=== PATIENT | female | born 1960 | race Caucasian/White ===

== ENCOUNTER → 2017-11-23 | Outpatient (CLI) | payer OTHER ==
[~2017-11-23] MED LIST: CLARITIN,ALAVAR10 MG PO; CYTOTEC200 MCG PO; HYDROCHLOROTHIA25 MG PO; PRINIVIL10 MG PO; TYLENOL REGULA325 MG PO
== END | disposition home or self-care (01) ==
LOC: CDC 09:42
DX: Z01.810 Encounter for preprocedural cardiovascular examination (principal)
CPT/HCPCS: 93000

== ENCOUNTER 2018-01-17 13:55 | Emergency (ER) | payer OTHER ==
[~2018-01-17] VITALS: Ht 154.9 cm; Wt 81.8 kg
[2018-01-17 15:14] LABS: HEMATOCRIT 41.5 % (36.0-46.0); HEMOGLOBIN 14.5 G/DL (11.9-15.5); MCH 34.4 PG (29.0-34.0); MCHC 34.9 G/DL (30.0-36.0); MCV 98.6 FL (83-99); PLATELET COUNT 278 K/uL (156-360); RBC DIS.WIDTH-CV 12.5 % (11.8-14.6); RBC DIS.WIDTH-SD 45.8 % (39-53); RED BLOOD COUNT 4.21 M/uL (3.80-5.20); WHITE BLOOD COUNT 9.8 K/uL (4.1-10.2)
[2018-01-17 15:26] LABS: ALBUMIN 4.3 g/dL (3.2-4.8); CHLORIDE 100 mEq/L (99-109)
[2018-01-17 15:27] LABS: POTASSIUM 3.7 mEq/L (3.7-5.4); SODIUM 142 mEq/L (136-147)
[2018-01-17 15:29] LABS: GLUCOSE 115 mg/dL (70-99); TOTAL PROTEIN 7.9 g/dL (6.4-8.3)
[2018-01-17 15:31] LABS: TOTAL BILIRUBIN 1.1 mg/dL (0.0-1.0)
[2018-01-17 15:32] LABS: ALKALINE PHOSPHATASE 74 IU/L (3-129); CREATININE 1.3 mg/dL (0.6-1.3); GFR ESTIMATE (CALCULATED) 45 mL/min/
[2018-01-17 15:34] LABS: AST (GOT) 20 IU/L (2-34); UREA NITROGEN (BUN) 23 mg/dL (9-23)
[2018-01-17 15:35] LABS: ALT (GPT) 17 IU/L (3-49)
[2018-01-17 16:13] LABS: TROP-I INTERPRETATION NEGATIVE; TROPONIN-I 0.04 ng/mL (0.0-0.30)
[2018-01-17] MEDS ORDERED: OMEPRAZOLE40 M1 PO (16:50)
[2018-01-17 17:06] VITALS: BP 132/61
== END 2018-01-17 17:18 | disposition home or self-care (01) ==
LOC: EME 13:55
PROVIDERS: Physician Assistant
DX: K21.9 Gastro-esophageal reflux disease without esophagitis (principal); R07.9 Chest pain, unspecified; Z91.040 Latex allergy status
CPT/HCPCS: 71046; 80053; 81003; 84484; 85027; 93005; 99281; 99285

== ENCOUNTER 2018-03-05 09:11 | Emergency (ER) | payer OTHER ==
[~2018-03-05] VITALS: Ht 154.9 cm; Wt 81.5 kg
[~2018-03-05 09:11] MED LIST changes: +OMEPRAZOLE40 M1 PO
[2018-03-05 10:04] LABS: BASOPHIL (%) 0.7 % (0-1); BASOPHIL COUNT 0.1 K/uL (0-0.1); EOSINOPHIL (%) 1.8 % (0-5); EOSINOPHIL COUNT 0.2 K/uL (0-0.3); HEMATOCRIT 42.2 % (36.0-46.0); HEMOGLOBIN 14.7 G/DL (11.9-15.5); IMMATURE GRANULOCYTE (%) 0.3 % (0.0-0.7); LYMPHOCYTE COUNT 1.4 K/uL (1.0-2.8); MCHC 34.8 G/DL (30.0-36.0); MCV 97.7 FL (83-99); MONOCYTE COUNT 1.1 K/uL (0-0.8); NEUTROPHIL (%) 69.2 % (45-76); NEUTROPHIL COUNT 6.1 K/uL (1.8-6.4); PLATELET COUNT 259 K/uL (156-360); RBC DIS.WIDTH-CV 12.1 % (11.8-14.6); RBC DIS.WIDTH-SD 43.9 % (39-53); RED BLOOD COUNT 4.32 M/uL (3.80-5.20); WHITE BLOOD COUNT 8.8 K/uL (4.1-10.2)
[2018-03-05 10:15] LABS: CHLORIDE 101 mEq/L (99-109); POTASSIUM 3.1 mEq/L (3.7-5.4); SODIUM 142 mEq/L (136-147)
[2018-03-05 10:17] LABS: GLUCOSE 102 mg/dL (70-99)
[2018-03-05 10:21] LABS: CREATININE 1.1 mg/dL (0.6-1.3); GFR ESTIMATE (CALCULATED) 54 mL/min/
[2018-03-05 10:22] LABS: UREA NITROGEN (BUN) 20 mg/dL (9-23)
[2018-03-05 13:30] VITALS: BP 163/83
== END 2018-03-05 13:55 | disposition home or self-care (01) ==
LOC: EME 09:11
PROVIDERS: Emergency Medicine
DX: I10 Essential (primary) hypertension (principal)
CPT/HCPCS: 80048; 85025; 99281; 99284

== ENCOUNTER 2018-04-18 17:22 | Inpatient (IN) | payer OTHER ==
[~2018-04-18] VITALS: Ht 154.9 cm; Wt 92.0 kg
[~2018-04-18 17:22] MED LIST changes: -PRINIVIL10 MG PO; +TYLENOL EXTRA500 MG PO; -TYLENOL REGULA325 MG PO; +ZESTRIL40 MG PO
[2018-04-18] MEDS ORDERED: OMEPRAZOLE40 M1 PO (18:17)
[2018-04-18] MEDS ORDERED: AUGMENTIN875 MG PO (18:17)
[2018-04-18] MEDS ORDERED: LOPRESSOR25 MG PO (18:17)
[2018-04-18 18:29] LABS: BASOPHIL (%) 0.3 % (0-1); BASOPHIL COUNT 0.1 K/uL (0-0.1); EOSINOPHIL (%) 0.2 % (0-5); HEMATOCRIT 37.2 % (36.0-46.0); HEMOGLOBIN 12.8 G/DL (11.9-15.5); IMMATURE GRANULOCYTE (%) 0.7 % (0.0-0.7); LYMPHOCYTE (%) 6.2 % (15-42); LYMPHOCYTE COUNT 1.2 K/uL (1.0-2.8); MCHC 34.4 G/DL (30.0-36.0); MCV 98.9 FL (83-99); MONOCYTE COUNT 1.4 K/uL (0-0.8); NEUTROPHIL (%) 85.6 % (45-76); NEUTROPHIL COUNT 17.1 K/uL (1.8-6.4); PLATELET COUNT 309 K/uL (156-360); RBC DIS.WIDTH-CV 12.6 % (11.8-14.6); RBC DIS.WIDTH-SD 45.8 % (39-53); RED BLOOD COUNT 3.76 M/uL (3.80-5.20)
[2018-04-18 18:38] LABS: ALBUMIN 4.1 g/dL (3.2-4.8)
[2018-04-18 18:39] LABS: CHLORIDE 110 mEq/L (99-109); POTASSIUM 4.9 mEq/L (3.7-5.4); SODIUM 138 mEq/L (136-147)
[2018-04-18 18:41] LABS: GLUCOSE 111 mg/dL (70-99); TOTAL PROTEIN 8.4 g/dL (6.4-8.3)
[2018-04-18 18:43] LABS: TOTAL BILIRUBIN 0.5 mg/dL (0.0-1.0)
[2018-04-18 18:44] LABS: ALKALINE PHOSPHATASE 66 IU/L (3-129)
[2018-04-18 18:45] LABS: CREATININE 7.8 mg/dL (0.6-1.3); GFR ESTIMATE (CALCULATED) 6 mL/min/
[2018-04-18 18:46] LABS: AST (GOT) 11 IU/L (2-34); DIRECT BILIRUBIN 0.2 mg/dL (0.0-0.3)
[2018-04-18 18:47] LABS: ALT (GPT) 10 IU/L (3-49)
[2018-04-18 18:55] LABS: UREA NITROGEN (BUN) 143 mg/dL (9-23)
[2018-04-18 19:12] LABS: COMMENTS - BLOOD GASES C+; SITE RR; TOTAL RESP RATE 18 resp/min
[2018-04-18 19:14] LABS: CARBOXY HGB 1.3 % (0-5); METHEMOGLOBIN 1.3 % (0-1.5); PCO2 23 mm Hg (35-45); PO2 107 mm Hg (80-100); pH 7.09 (7.35-7.45)
[2018-04-18 19:15] LABS: BASE EXCESS -21.2 mEq/L (-3 to +3)
[2018-04-18 19:33] LABS: APPEARANCE CLOUDY ((CLEAR)); BILIRUBIN NEGATIVE; BLOOD LARGE; COLOR YELLOW ((YELLOW)); GLUCOSE (STRIP) NEGATIVE; KETONES NEGATIVE; LEUKOCYTES LARGE; NITRITE NEGATIVE; PROTEIN (STRIP) 30; SPECIFIC GRAVITY 1.011 (1.000-1.030); UROBILINOGEN 0.2 MG/DL (0.2-1.0)
[2018-04-18 19:54] LABS: BACTERIA RARE /HPF; EPITHELIAL CELLS RARE /HPF; WHITE BLOOD CELLS TNTC /HPF (0-5)
[2018-04-18 20:22] LABS: RED BLOOD CELLS 15-20 /HPF (0-5)
[2018-04-18 20:23] LABS: MUCUS NONE SEEN /LPF
[2018-04-18 21:40] LABS: MAGNESIUM 1.3 mg/dL (1.3-2.7)
[2018-04-18 21:45] LABS: PHOSPHORUS 10.5 mg/dL (2.5-4.9)
[2018-04-18 22:48] LABS: PTT 38.3 SEC (25-37)
[2018-04-18 23:15] VITALS: BP 76/60
[2018-04-18 23:19] LABS: INTER. NORMALIZED RATIO 1.2
[2018-04-18 23:30] VITALS: BP 76/60
[2018-04-19] VITALS (18 sets, daily range): BP systolic 75–129; BP diastolic 41–90
[2018-04-19 05:19] LABS: BASE EXCESS -18.1 mEq/L (-3 to +3); BICARBONATE 8.8 mEq/L (22-26); CARBOXY HGB 1.4 % (0-5); COMMENTS - BLOOD GASES C+A+; DEVICE ROOM AIR; METHEMOGLOBIN 1.1 % (0-1.5); PCO2 24 mm Hg (35-45); PO2 118 mm Hg (80-100); SITE LR
[2018-04-19 05:20] LABS: pH 7.17 (7.35-7.45)
[2018-04-19 06:10] LABS: HEMATOCRIT 30.6 % (36.0-46.0); MCH 32.7 PG (29.0-34.0); RBC DIS.WIDTH-CV 12.8 % (11.8-14.6); WHITE BLOOD COUNT 13.6 K/uL (4.1-10.2)
[2018-04-19 06:18] LABS: HEMOGLOBIN 9.8 G/DL (11.9-15.5); PLATELET COUNT 211 K/uL (156-360)
[2018-04-19 06:23] LABS: CHLORIDE 113 MEQ/L (99-109); GLUCOSE 137 mg/dL (70-99); PHOSPHORUS 8.9 mg/dL (2.5-4.9); SODIUM 139 MEQ/L (136-147)
[2018-04-19 06:43] LABS: CREATININE 6.4 MG/DL (0.6-1.3); GFR ESTIMATE (CALCULATED) 7 mL/min/; UREA NITROGEN (BUN) 119 mg/dL (9-23)
[2018-04-19 16:36] LABS: CHLORIDE 110 MEQ/L (99-109); CREATININE 5.6 MG/DL (0.6-1.3); GFR ESTIMATE (CALCULATED) 8 mL/min/; GLUCOSE 156 mg/dL (70-99); MAGNESIUM 1.1 mg/dl (1.3-2.7); SODIUM 138 MEQ/L (136-147); UREA NITROGEN (BUN) 111 mg/dL (9-23)
[2018-04-20] VITALS (11 sets, daily range): BP systolic 115–159; BP diastolic 71–88
[2018-04-20 05:11] LABS: BASOPHIL (%) 0.3 % (0-1); EOSINOPHIL (%) 0.1 % (0-5); HEMATOCRIT 28.6 % (36.0-46.0); HEMOGLOBIN 10.2 G/DL (11.9-15.5); IMMATURE GRANULOCYTE (%) 0.4 % (0.0-0.7); LYMPHOCYTE (%) 8.4 % (15-42); LYMPHOCYTE COUNT 1.3 K/uL (1.0-2.8); MCHC 35.7 G/DL (30.0-36.0); MONOCYTE (%) 12.8 % (3-12); NEUTROPHIL COUNT 12.2 K/uL (1.8-6.4); PLATELET COUNT 204 K/uL (156-360); RBC DIS.WIDTH-CV 12.2 % (11.8-14.6); WHITE BLOOD COUNT 15.6 K/uL (4.1-10.2)
[2018-04-20 05:13] LABS: MCV 95.3 FL (83-99)
[2018-04-20 05:16] LABS: ALBUMIN 2.9 g/dL (3.2-4.8); CHLORIDE 108 mEq/L (99-109); POTASSIUM 3.2 mEq/L (3.7-5.4); SODIUM 142 mEq/L (136-147)
[2018-04-20 05:19] LABS: GLUCOSE 118 mg/dL (70-99)
[2018-04-20 05:21] LABS: TOTAL BILIRUBIN 0.6 mg/dL (0.0-1.0)
[2018-04-20 05:22] LABS: ALKALINE PHOSPHATASE 45 IU/L (3-129); PHOSPHORUS 7.3 mg/dL (2.5-4.9)
[2018-04-20 05:23] LABS: CREATININE 5.5 mg/dL (0.6-1.3); GFR ESTIMATE (CALCULATED) 8 mL/min/
[2018-04-20 05:44] LABS: ALT (GPT) 22 IU/L (3-49); AST (GOT) 56 IU/L (2-34); TOTAL PROTEIN 5.3 g/dL (6.4-8.3); UREA NITROGEN (BUN) 111 mg/dL (9-23)
[2018-04-20 16:15] LABS: CHLORIDE 102 MEQ/L (99-109); CREATININE 4.9 MG/DL (0.6-1.3); GFR ESTIMATE (CALCULATED) 10 mL/min/; GLUCOSE 123 mg/dL (70-99); POTASSIUM 3.2 MEQ/L (3.7-5.4); SODIUM 141 MEQ/L (136-147); UREA NITROGEN (BUN) 100 mg/dL (9-23)
[2018-04-21 03:23] VITALS: BP 128/75
[2018-04-21 06:00] LABS: BASOPHIL (%) 0.2 % (0-1); EOSINOPHIL (%) 0.1 % (0-5); HEMATOCRIT 27.6 % (36.0-46.0); HEMOGLOBIN 9.7 G/DL (11.9-15.5); IMMATURE GRANULOCYTE (%) 0.7 % (0.0-0.7); LYMPHOCYTE (%) 6.7 % (15-42); LYMPHOCYTE COUNT 1.1 K/uL (1.0-2.8); MCH 32.9 PG (29.0-34.0); MCHC 35.1 G/DL (30.0-36.0); MCV 93.6 FL (83-99); MONOCYTE (%) 12.5 % (3-12); MONOCYTE COUNT 2.1 K/uL (0-0.8); NEUTROPHIL (%) 79.8 % (45-76); NEUTROPHIL COUNT 13.6 K/uL (1.8-6.4); PLATELET COUNT 202 K/uL (156-360); RBC DIS.WIDTH-CV 11.9 % (11.8-14.6); RBC DIS.WIDTH-SD 40.7 % (39-53); RED BLOOD COUNT 2.95 M/uL (3.80-5.20)
[2018-04-21 06:24] LABS: CHLORIDE 98 MEQ/L (99-109); GLUCOSE 132 mg/dL (70-99); POTASSIUM 3.2 MEQ/L (3.7-5.4); SODIUM 143 MEQ/L (136-147); UREA NITROGEN (BUN) 80 mg/dL (9-23)
[2018-04-21 06:46] LABS: GFR ESTIMATE (CALCULATED) 12 mL/min/
[2018-04-21 06:47] LABS: MAGNESIUM 0.8 mg/dl (1.3-2.7); PHOSPHORUS 3.9 mg/dL (2.5-4.9)
[2018-04-21 07:15] VITALS: BP 117/58
[2018-04-21 11:33] VITALS: BP 125/63
[2018-04-21 15:43] VITALS: BP 113/66
[2018-04-21 21:01] VITALS: BP 118/59
[2018-04-21 22:55] VITALS: BP 112/70
[2018-04-22 03:15] VITALS: BP 117/67
[2018-04-22 05:21] LABS: HEMATOCRIT 27.8 % (36.0-46.0); HEMOGLOBIN 9.3 G/DL (11.9-15.5); MCH 33.5 PG (29.0-34.0); MCHC 33.5 G/DL (30.0-36.0); PLATELET COUNT 186 K/uL (156-360); RBC DIS.WIDTH-CV 12.7 % (11.8-14.6); RBC DIS.WIDTH-SD 46.7 % (39-53); RED BLOOD COUNT 2.78 M/uL (3.80-5.20); WHITE BLOOD COUNT 19.3 K/uL (4.1-10.2)
[2018-04-22 06:08] LABS: CHLORIDE 100 MEQ/L (99-109); GLUCOSE 105 mg/dL (70-99); POTASSIUM 3.6 MEQ/L (3.7-5.4); SODIUM 144 MEQ/L (136-147); UREA NITROGEN (BUN) 58 mg/dL (9-23)
[2018-04-22 06:45] LABS: CREATININE 3.1 MG/DL (0.6-1.3); GFR ESTIMATE (CALCULATED) 16 mL/min/; MAGNESIUM 1.9 mg/dl (1.3-2.7)
[2018-04-22 06:55] VITALS: BP 108/58
[2018-04-22 11:36] VITALS: BP 126/91
[2018-04-22 16:19] VITALS: BP 136/68
[2018-04-22 19:17] VITALS: BP 135/69
[2018-04-22 22:09] VITALS: BP 124/70
[2018-04-23 04:06] VITALS: BP 148/65
[2018-04-23 05:53] LABS: HEMATOCRIT 28.8 % (36.0-46.0); HEMOGLOBIN 9.3 G/DL (11.9-15.5); MCH 32.5 PG (29.0-34.0); MCHC 32.3 G/DL (30.0-36.0); MCV 100.7 FL (83-99); PLATELET COUNT 206 K/uL (156-360); RBC DIS.WIDTH-CV 12.5 % (11.8-14.6); RBC DIS.WIDTH-SD 46.4 % (39-53); RED BLOOD COUNT 2.86 M/uL (3.80-5.20); WHITE BLOOD COUNT 20.2 K/uL (4.1-10.2)
[2018-04-23 06:07] LABS: CHLORIDE 101 MEQ/L (99-109); GLUCOSE 102 mg/dL (70-99); POTASSIUM 3.9 MEQ/L (3.7-5.4); SODIUM 140 MEQ/L (136-147); UREA NITROGEN (BUN) 42 mg/dL (9-23)
[2018-04-23 06:08] LABS: CREATININE 2.2 MG/DL (0.6-1.3); GFR ESTIMATE (CALCULATED) 24 mL/min/
[2018-04-23 07:24] VITALS: BP 145/68
[2018-04-23 11:28] VITALS: BP 128/66
[2018-04-23 13:28] LABS: INTACT PARATHYROID HORMONE 122 pg/mL (10-69)
[2018-04-23 15:30] VITALS: BP 159/74
[2018-04-23 21:00] VITALS: BP 114/54
[2018-04-24] VITALS: BP 118/58
[2018-04-24 05:19] VITALS: BP 118/60
[2018-04-24 05:38] LABS: HEMATOCRIT 26.6 % (36.0-46.0); HEMOGLOBIN 8.6 G/DL (11.9-15.5); MCH 32.7 PG (29.0-34.0); MCHC 32.3 G/DL (30.0-36.0); MCV 101.1 FL (83-99); PLATELET COUNT 228 K/uL (156-360); RBC DIS.WIDTH-CV 12.6 % (11.8-14.6); RBC DIS.WIDTH-SD 46.6 % (39-53); RED BLOOD COUNT 2.63 M/uL (3.80-5.20); WHITE BLOOD COUNT 15.4 K/uL (4.1-10.2)
[2018-04-24 06:04] LABS: CHLORIDE 102 MEQ/L (99-109); GLUCOSE 91 mg/dL (70-99); PHOSPHORUS 2.6 mg/dL (2.5-4.9); POTASSIUM 3.8 MEQ/L (3.7-5.4); SODIUM 141 MEQ/L (136-147); UREA NITROGEN (BUN) 32 mg/dL (9-23)
[2018-04-24 06:05] LABS: CREATININE 1.7 MG/DL (0.6-1.3); GFR ESTIMATE (CALCULATED) 33 mL/min/; MAGNESIUM 1.2 mg/dl (1.3-2.7)
[2018-04-24 08:05] VITALS: BP 125/65
[2018-04-24 11:48] VITALS: BP 125/63
[2018-04-24 21:00] VITALS: BP 128/60
[2018-04-25] VITALS: BP 126/82
[2018-04-25 04:30] VITALS: BP 126/62
[2018-04-25 05:59] LABS: HEMATOCRIT 27.3 % (36.0-46.0); HEMOGLOBIN 8.8 G/DL (11.9-15.5); MCH 32.6 PG (29.0-34.0); MCHC 32.2 G/DL (30.0-36.0); MCV 101.1 FL (83-99); PLATELET COUNT 241 K/uL (156-360); RBC DIS.WIDTH-CV 12.5 % (11.8-14.6); RBC DIS.WIDTH-SD 46.1 % (39-53); WHITE BLOOD COUNT 13.5 K/uL (4.1-10.2)
[2018-04-25 06:24] LABS: CHLORIDE 101 MEQ/L (99-109); CREATININE 1.6 MG/DL (0.6-1.3); GFR ESTIMATE (CALCULATED) 35 mL/min/; GLUCOSE 98 mg/dL (70-99); POTASSIUM 3.6 MEQ/L (3.7-5.4); SODIUM 139 MEQ/L (136-147); UREA NITROGEN (BUN) 28 mg/dL (9-23)
[2018-04-25] MEDS ORDERED: CALCIUM CARB1 TABLET PO (06:29)
[2018-04-25] MEDS ORDERED: DOCUSATE SODIU100 MG PO (06:29)
[2018-04-25] MEDS ORDERED: FAMOTIDINE20 MG PO (06:30)
[2018-04-25] MEDS ORDERED: ERGOCALCIF50000 UNIT PO (06:30)
[2018-04-25] MEDS ORDERED: OXYCODONE H5 MG/5 ML PO (06:32)
[2018-04-25] MEDS ORDERED: CLINDAMYCIN HC300 MG PO (06:34)
[2018-04-25 07:39] VITALS: BP 135/87
== END 2018-04-25 13:51 | DRG 683 ==
LOC: EME 17:22 → ENRESERV 19:58 → EDOF 20:00 → 4WEST 20:00 → ENRESERV 04-20 13:59 → 4WEST 04-20 13:59 → ENRESERV 04-20 14:05 → 4EAST 04-20 15:43 → ENPENDDIS 04-25 → 4EAST 04-25 13:51
PROVIDERS: Emergency Medicine; Internal Medicine; Internal Medicine Nephrology; Surgery
DX: N17.0 Acute kidney failure with tubular necrosis (principal); T46.4X5A Adverse effect of angiotensin-converting-enzyme inhibitors, initial encounter; E86.0 Dehydration; E87.4 Mixed disorder of acid-base balance; T81.72XA Complication of vein following a procedure, not elsewhere classified, initial encounter; I80.8 Phlebitis and thrombophlebitis of other sites; T81.4XXA Infection following a procedure, initial encounter; L03.114 Cellulitis of left upper limb; E83.42 Hypomagnesemia; E87.6 Hypokalemia; D64.9 Anemia, unspecified; E83.51 Hypocalcemia; I12.9 Hypertensive chronic kidney disease with stage 1 through stage 4 chronic kidney disease, or unspecified chronic kidney disease; N18.3 Chronic kidney disease, stage 3 (moderate); G89.29 Other chronic pain; M50.90 Cervical disc disorder, unspecified, unspecified cervical region; M25.519 Pain in unspecified shoulder; M54.5 Low back pain; R21 Rash and other nonspecific skin eruption; K21.9 Gastro-esophageal reflux disease without esophagitis; E66.9 Obesity, unspecified; R62.50 Unspecified lack of expected normal physiological development in childhood; I95.9 Hypotension, unspecified; Z68.38 Body mass index [BMI] 38.0-38.9, adult; Z91.040 Latex allergy status
CPT/HCPCS: 36415; 36600; 71045; 71046; 76770; 80048; 80048 91; 80053; 80076; 81003; 82306; 82330; 83605; 83735; 83970; 84100; 84443; 85025; 85025 91; 85027; 85610; 85730; 87040; 87086; 87641; 93005; 93971; 94799; 97530 GO; 97530 GP; 99281; 99285; J0690; J0696; J1644; J2405; J3475; J7030; J7050; J7070; S0028